=== PATIENT | male | born 1960 | race Caucasian/White ===

== ENCOUNTER 2024-11-30 01:38 | Emergency (ER) | payer SELFPAY ==
[~2024-11-30] VITALS: Ht 177.8 cm; Wt 82.0 kg
[2024-11-30 01:56] VITALS: TEMP 36.7; O2SAT 98
[2024-11-30] MEDS: DEXAMETHASONE 10 MG/ML VIAL IM ONE (02:51)
[2024-11-30] MEDS: FAMOTIDINE 20MG TABLET PO ONE (02:51)
[2024-11-30] MEDS: DIPHENHYDRAMINE 25MG CAPSULE PO ONE (02:51)
[2024-11-30] MEDS ORDERED: PRED5TAB48 MT (03:15)
[2024-11-30] MEDS ORDERED: DIPH25TA62 MT (03:15)
[2024-11-30 03:24] VITALS: BP 157/87; PULSE 56; RESP 14; O2SAT 98
== END 2024-11-30 03:28 | disposition home or self-care (01) ==
LOC: ER 01:38
DX: T78.40XA Allergy, unspecified, initial encounter (principal); L50.9 Urticaria, unspecified; Z88.8 Allergy status to other drugs, medicaments and biological substances; X58.XXXA Exposure to other specified factors, initial encounter; Y93.89 Activity, other specified; Y92.89 Other specified places as the place of occurrence of the external cause; Y99.8 Other external cause status
CPT/HCPCS: 99283; 96372; Q0163; J1100